=== PATIENT | male | born 1980 | race Caucasian/White ===

== ENCOUNTER 2018-06-15 07:59 | Emergency (ER) | payer OTHER ==
[~2018-06-15] VITALS: Ht 185.4 cm; Wt 106.7 kg
[2018-06-15 08:07] VITALS: BP 154/83
--- NOTE | 2018-06-15 09:10 | NUR ---
Patient given discharge instructions and Rx, they have confirmed that they understand the instructions. Patient ambulatory with steady gait.
== END 2018-06-15 09:43 | disposition home or self-care (01) ==
LOC: ED 09:37
DX: H66.011 Acute suppurative otitis media with spontaneous rupture of ear drum, right ear (principal)
CPT/HCPCS: 99283